=== PATIENT | female | born 1980 | race Caucasian/White ===

== ENCOUNTER 2016-05-24 23:07 | Emergency (ER) | payer MEDICAID ==
[~2016-05-24] VITALS: Ht 157.5 cm; Wt 49.2 kg
[2016-05-25 00:07] LABS: DAU SCREEN DISCLAIMER
[2016-05-25 00:22] LABS: HEMOGLOBIN 13.2 g/dL (11.7-16.4)
[2016-05-25 00:33] LABS: BLOOD UREA NITROGEN 12 mg/dL (7-18)
[2016-05-25] MEDS ORDERED: DEXT10TA7 PO (01:02)
[2016-05-25] MEDS ORDERED: TRAZ100T15 PO (01:03)
[2016-05-25 01:04] VITALS: BP 110/75
[2016-05-25] MEDS ORDERED: KETOROLAC 30 MG/1 ML ONE (01:11)
[2016-05-25] MEDS ORDERED: KETOROLAC 30 MG/1 ML IM ONE (01:30)
== END 2016-05-25 01:52 | disposition home or self-care (01) ==
LOC: ED 23:59
DX: S06.0X1A Concussion with loss of consciousness of 30 minutes or less, initial encounter (principal); R55 Syncope and collapse; F15.10 Other stimulant abuse, uncomplicated; J45.909 Unspecified asthma, uncomplicated; X58.XXXA Exposure to other specified factors, initial encounter; Y93.89 Activity, other specified; Y92.89 Other specified places as the place of occurrence of the external cause; Y99.9 Unspecified external cause status
CPT/HCPCS: 36415; 70450; 80048; 80307; 82040; 85025; 93005; 96372; 99285; J1885

== ENCOUNTER 2018-06-02 15:17 | Emergency (ER) | payer MEDICAID ==
[~2018-06-02] VITALS: Ht 154.9 cm; Wt 50.8 kg
[~2018-06-02 15:17] MED LIST: DEXT10TA7 PO; TRAZ-137 PO
[2018-06-02] MEDS ORDERED: SODIUM CHLORIDE FLUSH 10ML SYR IVF ONE (16:00)
--- NOTE | 2018-06-02 16:09 | NUR ---
Xray awaiting CT C-spine clearance.
--- NOTE | 2018-06-02 16:18 | NUR ---
AWAITING URINE TEST AND NEED US IV FOR CT SCAN
[2018-06-02 17:01] LABS: HCG UR SG 1.013 (1.003-1.030)
--- NOTE | 2018-06-02 17:16 | NUR ---
PT TO CT
[2018-06-02] MEDS ORDERED: OMNIPAQUE 350 MG/ML, 100ML BOTTLE ONE (17:56)
[2018-06-02] MEDS ORDERED: HYDROcodone/APAP 5/325 TABLET ONE (18:23)
--- NOTE | 2018-06-02 18:29 | NUR ---
UA ORDERED TO R/O CYSTITIS, URINE ALREADY IN LAB AND LAB CALLED TO NOTIFY OF ADDITIONAL ORDER
[2018-06-02] MEDS ORDERED: HYDROcodone/APAP 5/325 TABLET PO ONE (18:30)
[2018-06-02 18:45] LABS: MICROSCOPIC AUTO
[2018-06-02 18:46] LABS: CULTURE INDICATED? YES
--- NOTE | 2018-06-02 19:13 | NUR ---
REPORT TO RAJIV SHIELDS
[2018-06-02 19:46] VITALS: BP 126/96
== END 2018-06-02 19:48 | disposition home or self-care (01) ==
LOC: ED 19:36
DX: S10.93XA Contusion of unspecified part of neck, initial encounter (principal); S00.93XA Contusion of unspecified part of head, initial encounter; S20.219A Contusion of unspecified front wall of thorax, initial encounter; S30.1XXA Contusion of abdominal wall, initial encounter; J45.909 Unspecified asthma, uncomplicated; Y04.8XXA Assault by other bodily force, initial encounter; Y93.01 Activity, walking, marching and hiking; Y92.410 Unspecified street and highway as the place of occurrence of the external cause; Y99.8 Other external cause status
CPT/HCPCS: 70450; 71046; 72072; 72110; 72125; 74177; 81001; 81025; 87086; 99284; Q9967

== ENCOUNTER 2019-01-24 14:55 | Emergency (ER) | payer MEDICAID ==
[~2019-01-24] VITALS: Ht 154.9 cm; Wt 52.5 kg
[2019-01-24 15:22] VITALS: BP 143/68
--- NOTE | 2019-01-24 16:22 | NUR ---
FOOT WRAPPED WITH LAXMI WRAP AMBULATED TO D/C DESK W/OUT DIFFICULTY
== END 2019-01-24 16:25 | disposition home or self-care (01) ==
LOC: ED 16:19
DX: S90.31XA Contusion of right foot, initial encounter (principal); W22.8XXA Striking against or struck by other objects, initial encounter; Y93.89 Activity, other specified; Y92.009 Unspecified place in unspecified non-institutional (private) residence as the place of occurrence of the external cause; Y99.8 Other external cause status
CPT/HCPCS: 99283

== ENCOUNTER 2020-09-16 23:36 | Emergency (ER) | payer MEDICAID ==
[~2020-09-16] VITALS: Ht 157.5 cm; Wt 50.0 kg
[~2020-09-16 23:36] MED LIST changes: +CEFD300C37 PO; -TRAZ-137 PO; +TRAZ-175 PO
[2020-09-16 23:40] VITALS: BP 134/82
--- NOTE | 2020-09-17 01:46 | NUR ---
rn discharge note: No answer from lobby when pt called for room.
--- NOTE | 2020-09-17 02:11 | NUR ---
rn charge note: No answer from lobby when pt called for room.
--- NOTE | 2020-09-17 02:22 | NUR ---
charge aide note: No answer from lobby when pt called for room.
== END 2020-09-17 02:24 | disposition left against medical advice (07) ==
LOC: ED 09-17 02:20
DX: R21 Rash and other nonspecific skin eruption (principal); Z53.21 Procedure and treatment not carried out due to patient leaving prior to being seen by health care provider

== ENCOUNTER 2020-09-26 15:40 | Emergency (ER) | payer MEDICAID ==
[~2020-09-26] VITALS: Ht 157.5 cm; Wt 51.0 kg
[2020-09-26 15:50] VITALS: BP 93/54
--- NOTE | 2020-09-26 16:07 | NUR ---
DROPPED WALL UNIT AC ON RIGHT FOOT ABOUT 1430 TODAY. SMALL WOUND TO LAST TWO TOES ON RT FOOT BUT PT STATES LAST HALF OF FOOT IS TENDER. SCANT BLEEDING, CONTROLLED. PAIN 08/15. LAST TETANUS IN 2019.
[2020-09-26] MEDS ORDERED: HYDROcodone/APAP 5/325 TABLET ONE (16:17)
[2020-09-26] MEDS ORDERED: HYDROcodone/APAP 5/325 TABLET PO ONE (16:30)
--- NOTE | 2020-09-26 17:12 | NUR ---
Patient given discharge instructions and they have confirmed that they understand the instructions. Patient ambulatory with steady gait.
== END 2020-09-26 17:13 | disposition home or self-care (01) ==
LOC: ED 16:48
DX: S90.121A Contusion of right lesser toe(s) without damage to nail, initial encounter (principal); J45.909 Unspecified asthma, uncomplicated; Z90.89 Acquired absence of other organs; Z90.49 Acquired absence of other specified parts of digestive tract; X58.XXXA Exposure to other specified factors, initial encounter; Y93.89 Activity, other specified; Y92.009 Unspecified place in unspecified non-institutional (private) residence as the place of occurrence of the external cause; Y99.8 Other external cause status
CPT/HCPCS: 99283